=== PATIENT | male | born 1975 | race African-American/Black ===

== ENCOUNTER 2016-11-03 14:14 | Emergency (ER) | payer OTHER ==
[~2016-11-03] VITALS: Ht 185.4 cm; Wt 91.6 kg
[~2016-11-03 14:14] MED LIST: AMOXICILLIN PO; BACTRIM 400-801 EACH PO
[2016-11-03] MEDS ORDERED: TRIBENZOR 40-11 EACH PO (14:34)
[2016-11-03] MEDS ORDERED: FLONASE 0.05%50 MCG NASAL (15:49)
[2016-11-03] MEDS ORDERED: IBUPROFEN 800800 M1 PO (15:49)
[2016-11-03 16:08] VITALS: BP 117/77
== END 2016-11-03 16:09 | disposition home or self-care (01) ==
LOC: ER 14:14
DX: B34.9 Viral infection, unspecified (principal); F17.210 Nicotine dependence, cigarettes, uncomplicated; F10.99 Alcohol use, unspecified with unspecified alcohol-induced disorder

== ENCOUNTER 2017-01-18 20:11 | Emergency (ER) | payer OTHER ==
[~2017-01-18] VITALS: Ht 185.4 cm; Wt 68.0 kg
--- NOTE | ~2017-01-18 | EKG ---
[address] [address] ELECTROCARDIOGRAM REPORT Name: RAY BARBA [facility] [id number] Admission: 01/18/17 Attend Phys: Discharge: 01/18/17 Date of : 79 Report #: [id number] THIS REPORT FOR: //name// [facility] ED Test Date: 2017-01-18 Test Time: 20:16:27 Pat Name: RAY BARBA Department: Room: Gender: M Physicist [place]: REGINA : 1975 Requested By: Maged Franklin Order Number: [id number] MD: Kalyan An Measurements Intervals [place] Rate: 62 P: 30 [place]: 154 QRS: -24 QRSD: 117 T: 57 QT: 392 QTc: 398 Interpretive Statements Sinus rhythm Nonspecific intraventricular conduction delay No previous ECG available for comparison Electronically Signed On 01-19-2017 15:29:24 CDT by Kalyan An [email or web address] <ELECTRONICALLY SIGNED> By: Kalyan An MD 01/19/17 1529 15 15 Kalyan An MD /TOMMY
[~2017-01-18 20:11] MED LIST changes: +FLONASE 0.05%50 MCG NASAL; +IBUPROFEN 800800 M1 PO; +TRIBENZOR 40-11 EACH PO
[2017-01-18 20:43] LABS: ABSOLUTE NEUTROPHILS 1.5 thou/uL (1.4-8.2); EOSINOPHILS 2.4 % (0.0-3.0); HEMOGLOBIN 14.5 gm/dL (14.0-18.0); LYMPHOCYTES 49.7 % (24.0-44.0); MCH 32.1 pg (26.0-34.0); MCHC 34.4 g/dL (28.0-37.0); MCV 93.2 fL (80.0-100.0); MONOCYTES 9.1 % (1.0-8.0); PLATELET COUNT 159 thou/uL (150-400); POLYS 37.8 % (36.0-66.0); RBC 4.51 mil/uL (4.50-6.00)
[2017-01-18 20:44] LABS: MANUAL DIFF NO
[2017-01-18 20:52] LABS: ANION GAP 9 mmol/L (7-16); BUN 15 mg/dL (7-18); CHLORIDE 105 mmol/L (98-107); CO2 28 mmol/L (21-32); CREATININE 1.2 mg/dL (0.6-1.3); GLUCOSE 106 mg/dL (70-99); POTASSIUM 3.6 mmol/L (3.5-5.1); SODIUM 142 mmol/L (136-145)
[2017-01-18 21:00] LABS: TROPONIN-I < 0.04 ng/mL (<0.04-0.07)
[2017-01-18] MEDS ORDERED: ULTRAM 50MG TAB50 MG PO (21:32)
[2017-01-18 21:53] VITALS: BP 149/102
== END 2017-01-18 21:53 | disposition home or self-care (01) ==
LOC: ER 20:11
PROVIDERS: Emergency Medicine
DX: R07.1 Chest pain on breathing (principal); I10 Essential (primary) hypertension; Z88.2 Allergy status to sulfonamides; F17.210 Nicotine dependence, cigarettes, uncomplicated; F10.99 Alcohol use, unspecified with unspecified alcohol-induced disorder; Z87.728 Personal history of other specified (corrected) congenital malformations of nervous system and sense organs; Z87.09 Personal history of other diseases of the respiratory system

== ENCOUNTER 2018-07-27 18:34 | Emergency (ER) | payer BC ==
[~2018-07-27] VITALS: Ht 185.4 cm; Wt 95.3 kg
[~2018-07-27 18:34] MED LIST changes: +ULTRAM 50MG TAB50 MG PO
[2018-07-27] MEDS ORDERED: AMLODIPINE BESY10 MG PO (19:06)
[2018-07-27] MEDS ORDERED: HYDROCHLOROTH12.5 M1 PO (19:06)
[2018-07-27] MEDS ORDERED: OLMESARTAN MEDO40 MG PO (19:06)
[2018-07-27] MEDS ORDERED: CIPRO250 M1 PO (19:07)
[2018-07-27] MEDS ORDERED: FLAGYL500 MG PO (19:07)
[2018-07-27 20:20] VITALS: BP 151/117
== END 2018-07-27 20:22 | disposition home or self-care (01) ==
LOC: ER 18:34
DX: I10 Essential (primary) hypertension (principal); F17.210 Nicotine dependence, cigarettes, uncomplicated; Z71.6 Tobacco abuse counseling; Z88.2 Allergy status to sulfonamides

== ENCOUNTER 2018-08-21 17:54 | Inpatient (IN) | payer BC ==
[~2018-08-21] VITALS: Ht 185.4 cm; Wt 83.0 kg
--- NOTE | ~2018-08-21 | EKG ---
[address] [address] ELECTROCARDIOGRAM REPORT Name: RAY BARBA Room #: 454-P ADM IN M.R.#: [id number] Admission: 08/21/18 Attend Phys: Cirilo Saldaña MD Discharge: Date of : 79 Report #: [id number] THIS REPORT FOR: //name// [facility] ED Test Date: 2018-08-21 Test Time: 20:21:19 Pat Name: RAY BARBA Department: Room: [facility] Gender: M Global Project Manager: JEET : 1975 Requested By: Chela Quigley Order Number: [id number] MD: Mitchell Horvath Measurements Intervals [place] Rate: 80 P: -7 [place]: 169 QRS: -26 QRSD: 117 T: 53 QT: 361 QTc: 417 Interpretive Statements Sinus rhythm Nonspecific intraventricular conduction delay ST elev, probable normal early repol pattern Compared to ECG 01/18/2017 20:16:27 No significant change was found Electronically Signed On 08-22-2018 8:58:34 CDT by Mitchell Horvath [email or web address] <ELECTRONICALLY SIGNED> By: Mitchell Horvath MD, [facility] 08/22/18 0858 20 20 Mitchell Horvath MD, [facility] /EPI
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
--- NOTE | ~2018-08-21 | EKG ---
[address] [address] ELECTROCARDIOGRAM REPORT Name: RAY BARBA [facility] M.R.#: [id number] Admission: 08/21/18 Attend Phys: Cirilo Saldaña MD Discharge: 08/24/18 Date of : 79 Report #: [id number] THIS REPORT FOR: //name// [facility] Test Date: 2018-08-24 Test Time: 13:24:25 Pat Name: RAY BARBA Department: Room: [facility] Gender: M Practice Representative: JODEE : 1975 Requested By: Cirilo Saldaña Order Number: [id number] MD: Mitchell Horvath Measurements Intervals [place] Rate: 75 P: -17 [place]: 158 QRS: -42 QRSD: 107 T: 34 QT: 371 QTc: 415 Interpretive Statements Sinus rhythm Left axis deviation Poor R wave progression Compared to ECG 08/21/2018 20:21:19 No significant change was found Electronically Signed On 08-25-2018 8:06:29 BOX TOE STITCHER by Mitchell Horvath [email or web address] <ELECTRONICALLY SIGNED> By: Mitchell Horvath MD, [facility] 08/25/18 0806 1324 1324 Mitchell Horvath MD, [facility] /EPI
--- NOTE | ~2018-08-21 | EEG ---
[facility] [place] [address] [place] [address] ELECTROENCEPHALOGRAM Name: RAY BARBA Room #: 454-P ADM IN M.R.#: [id number] Admission: 08/21/18 Attend Phys: Cirilo Saldaña MD Discharge: Date of : 79 Report #: [id number] THIS REPORT FOR: //name// CC: JAYMIE Saldaña DATE OF SERVICE: 08/22/2018 This patient is being evaluated for the possibility of syncope. EEG was done by placing the electrode by standard 10-20 system of electrode placement. Both referential and sequential montages were used for recording. Background activity in this patient's EEG is about 11 Hz and 40 microvolt. It is a symmetrical activity. The patient goes to sleep that is associated with bilaterally symmetrical sleep spindle and vertex sharp waves. Throughout the record, no active epileptiform activity was noticed. IMPRESSION: This patient's EEG is within normal limit. Thank you very much for this referral. <ELECTRONICALLY SIGNED> By: Aneudy Akers MD 08/23/18 1712 1515 19 Aneudy Akers MD /nt
--- NOTE | ~2018-08-21 | EXE ---
[facility] [address] [place] [address] STRESS ECHOCARDIOGRAM Name: RAY BARBA Room #: 454-P [facility] IN M.R.#: [id number] Admission: 08/21/18 Attend Phys: Cirilo Saldaña MD Discharge: Date of : 79 Date of Service: 08/22/18 1443 Report #: [id number] THIS REPORT FOR: //name// APPROVED REPORT Study performed: 08/22/2018 12:15:34 Exam: Stress Echocardiogram Indication: Hypertension, Syncope Patient Location: Echo lab Stress Nurse: Angela Mullen RN Room #: 454 Status: routine Ht: 6 ft 0 in HR: 77 bpm BP: 152/110 mmHg Rhythm: NSR Medical History Medical History: Smoking, HTN Cardiac Risk Factors: HTN, Smoking Procedure The patient underwent an Exercise Stress Test using the Tito Protocol. Blood pressure, heart rate, and EKG were monitored. An Echocardiogram was performed by shift lab technician in four stages in quad fashion. At peak stress, four selected images were obtained and placed side by side with resting images for comparison. Stress Test Details Stress Test: Exercise stress testing was performed using a Tito protocol. HR Resting HR: 77 bpm Max Heart Rate (APMHR): 180 bpm Max HR Achieved: 130 bpm Target HR (85% APMHR): 153 bpm % of APMHR: 72 Recovery HR: 75 bpm HR response to stress: Normal HR response to stress BP Resting BP: 152/110 mmHg Max BP: 190/100 mmHg Recovery BP: 150/101 mmHg ECG [facility] [address] [address] STRESS ECHOCARDIOGRAM Name: RAY BARBA Room #: 454-P [facility] IN .R.#: [id number] Admission: 08/21/18 Attend Phys: Cirilo Saldaña MD Discharge: Date of : 79 Date of Service: 08/22/18 1443 Report #: [id number] Resting ECG: Sinus Rhythm Stress ECG: Sinus Tachycardia Arrhythmia: None Recovery ECG: Sinus Rhythm Clinical Reason for Termination: Maximal effort, Dyspnea Stress Symptoms: Dyspnea Exercise duration: 9 min 39 sec Highest Stage Achieved: Stage 4: 4.2 mph at 16% grade. Exercise capacity: 12.1 METs Overall Exercise Capacity for Age: Poor Stress ECG Conclusion 1. Subjectively negative for ischemia 2. Elective cartographic treatment for ischemia. 3. Satisfactory functional capacity Pre-Stress Echo The resting Echocardiogram showed normal left ventricular contractility with an estimated Ejection Fraction of about >55%. Post-Stress Echo The stress Echocardiogram showed normal left ventricular contractility with an estimated Ejection Fraction of about 65%. Normal augmentation of wall motion in all segments on post stress images. Clinical Normal augmentation of myocardial wall segments using a 17 segment model. No clinical or ECG evidence for ischemia. Conclusion Clinical Response: Non-ischemic Exercise Capacity: Below Average Stress ECG Response: Non-ischemic Stress Echo Images: Non-ischemic 1. Low risk study No prior study available for comparison. Other Information Study Quality: Good [facility] [address] [place] [address] STRESS ECHOCARDIOGRAM Name[facility] Room #: 454-P ADM IN M.R.#: [id number] Admission: 08/21/18 Attend Phys: Cirilo Saldaña MD Discharge: Date of : 79 Date of Service: 08/22/18 144 Report #: [id number] <Conclusion> 1. Low risk study <ELECTRONICALLY SIGNED> By: Daquan Amaral MD 08/22/18 1443 42 42 Daquan Amaral MD /INF
[~2018-08-21 17:54] MED LIST changes: +AMLODIPINE BESY10 MG PO; +CIPRO250 M1 PO; +FLAGYL500 MG PO; +HYDROCHLOROTH12.5 M1 PO; +OLMESARTAN MEDO40 MG PO
[2018-08-21 17:56] VITALS: BP 116/81
[2018-08-21] MEDS ORDERED: BENICAR20 MG PO (18:08)
[2018-08-21] MEDS ORDERED: CHLORTHALIDONE25 MG PO (18:09)
[2018-08-21 18:46] LABS: HEMOGLOBIN 13.3 gm/dL (14.0-18.0)
[2018-08-21 18:48] LABS: ABSOLUTE NEUTROPHILS 2.6 thou/uL (1.4-8.2); BASOPHILS 0.7 % (0.0-2.0); EOSINOPHILS 1.7 % (0.0-3.0); HEMATOCRIT 38.2 % (42.0-52.0); MCH 32.1 pg (26.0-34.0); MCHC 34.9 g/dL (28.0-37.0); MONOCYTES 7.4 % (1.0-8.0); PLATELET COUNT 173 thou/uL (150-400); POLYS 52.2 % (36.0-66.0); RBC 4.15 mil/uL (4.50-6.00); RDW 13.6 % (10.5-14.5)
[2018-08-21 18:49] LABS: CALCIUM 9.2 mg/dL (8.5-10.1); CREATININE 1.3 mg/dL (0.7-1.3)
[2018-08-21 18:54] LABS: POTASSIUM 2.8 mmol/L (3.5-5.1)
[2018-08-21 18:55] LABS: ALBUMIN 3.6 g/dL (3.4-5.0); TOTAL BILIRUBIN 0.3 mg/dL (<0.1-1.0); TOTAL PROTEIN 6.8 g/dL (6.4-8.2)
[2018-08-21 19:00] LABS: URINE BILIRUBIN NEGATIVE (Negative); URINE BLOOD 2+ (Negative); URINE CLARITY CLEAR; URINE COLOR YELLOW; URINE GLUCOSE-RANDOM* NEGATIVE (Negative); URINE KETONES TRACE (Negative); URINE LEUKOCYTES NEGATIVE (Negative); URINE NITRITE NEGATIVE (Negative); URINE PROTEIN (DIPSTICK) TRACE (Negative); URINE SPECIFIC GRAVITY 1.025 (1.005-1.035); URINE UROBILINOGEN 0.2 E.U./dl (0.2-1.0)
[2018-08-21 19:08] LABS: AMP/METHAMP Negative (Negative); BARBITURATES Negative (Negative); BENZODIAZEPINES Negative (Negative); COCAINE Negative (Negative); METHADONE Negative (Negative); OPIATES Negative (Negative); PCP Negative (Negative)
[2018-08-21 19:11] LABS: SQUAMOUS None Seen /LPF (0-3); URINE RBC 3-10 Few /HPF (0-2)
[2018-08-21 19:12] LABS: BACTERIA 1-9 Few /HPF (None Seen); CASTS None Seen /LPF (None Seen); CRYSTALS None Seen /LPF (None Seen); URINE WBC None Seen /HPF (0-5)
[2018-08-21 21:29] VITALS: BP 146/94
[2018-08-21 22:12] VITALS: BP 145/103
[2018-08-21 23:52] VITALS: BP 137/89
[2018-08-22] VITALS (9 sets, daily range): BP systolic 132–165; BP diastolic 87–118
[2018-08-22 10:59] LABS: CALCIUM 8.7 mg/dL (8.5-10.1); CREATININE 1.2 mg/dL (0.7-1.3); POTASSIUM 3.5 mmol/L (3.5-5.1)
[2018-08-23 03:39] VITALS: BP 132/87
[2018-08-23 05:43] LABS: HEMATOCRIT 39.7 % (42.0-52.0); HEMOGLOBIN 13.9 gm/dL (14.0-18.0); MCH 32.3 pg (26.0-34.0); MCHC 34.9 g/dL (28.0-37.0); MCV 92.6 fL (80.0-100.0); PLATELET COUNT 168 thou/uL (150-400); RBC 4.29 mil/uL (4.50-6.00); RDW 13.4 % (10.5-14.5); WBC 5.1 thou/uL (4.0-11.0)
[2018-08-23 06:01] LABS: ALBUMIN 3.6 g/dL (3.4-5.0); CALCIUM 8.8 mg/dL (8.5-10.1); CREATININE 1.1 mg/dL (0.7-1.3); MAGNESIUM 1.9 mg/dL (1.8-2.4); POTASSIUM 3.6 mmol/L (3.5-5.1); TOTAL BILIRUBIN 0.2 mg/dL (<0.1-1.0); TOTAL PROTEIN 6.6 g/dL (6.4-8.2)
[2018-08-23 06:25] LABS: ABSOLUTE NEUTROPHILS 2.3 thou/uL (1.4-8.2); ANISOCYTOSIS 1+; ATYPICAL LYMPHS 1 %; POLYCHROMASIA OCCASIONAL
[2018-08-23 06:26] LABS: HYPOCHROMASIA SLIGHT
[2018-08-23 15:13] VITALS: BP 150/96
[2018-08-23 15:14] VITALS: BP 149/109
[2018-08-23 15:16] VITALS: BP 155/110
[2018-08-23 19:16] VITALS: BP 161/106
[2018-08-24 03:24] VITALS: BP 150/94
[2018-08-24 06:29] LABS: HEMATOCRIT 41.6 % (42.0-52.0); HEMOGLOBIN 14.2 gm/dL (14.0-18.0); MCH 31.9 pg (26.0-34.0); MCHC 34.2 g/dL (28.0-37.0); MCV 93.3 fL (80.0-100.0); RBC 4.46 mil/uL (4.50-6.00); RDW 13.7 % (10.5-14.5); WBC 3.3 thou/uL (4.0-11.0)
[2018-08-24 06:39] LABS: CREATININE 1.2 mg/dL (0.7-1.3); MAGNESIUM 2.2 mg/dL (1.8-2.4); POTASSIUM 3.7 mmol/L (3.5-5.1)
[2018-08-24 09:30] VITALS: BP 157/90
[2018-08-24 09:40] VITALS: BP 144/105
[2018-08-24] MEDS ORDERED: K-DUR 20 MEQ T20 MEQ PO (19:11)
[2018-08-24] MEDS ORDERED: ACETAMINOPHEN325 M1 PO (19:11)
[2018-08-24] MEDS ORDERED: BENICAR20 MG PO (19:12)
[2018-08-24] MEDS ORDERED: HYDROCHLOROTHIA25 M1 PO (19:12)
[2018-08-24] MEDS ORDERED: SLOW-MAG64 M1 PO (19:19)
[2018-08-24] MEDS ORDERED: NICOTINE TRANSD14 M1 TRANSDERM (19:19)
[2018-08-24 19:40] VITALS: BP 148/99
== END 2018-08-24 20:20 | disposition home or self-care (01) | DRG 552 ==
LOC: ER 17:54 → EROBS 21:14 → 4W 21:14
PROVIDERS: Hospitalist; Nurse Practitioner Acute Care; Physician Assistant
PROC: 0HQ0XZZ Repair Scalp Skin, External Approach (ICD-10-PCS; principal; 2018-08-21)
DX: S16.1XXA Strain of muscle, fascia and tendon at neck level, initial encounter (principal); S01.01XA Laceration without foreign body of scalp, initial encounter; I10 Essential (primary) hypertension; F17.210 Nicotine dependence, cigarettes, uncomplicated; S29.012A Strain of muscle and tendon of back wall of thorax, initial encounter; E87.6 Hypokalemia; R55 Syncope and collapse; E83.42 Hypomagnesemia; T50.2X5A Adverse effect of carbonic-anhydrase inhibitors, benzothiadiazides and other diuretics, initial encounter; Z79.899 Other long term (current) drug therapy; Z88.2 Allergy status to sulfonamides; V89.2XXA Person injured in unspecified motor-vehicle accident, traffic, initial encounter; Y93.89 Activity, other specified; Y92.488 Other paved roadways as the place of occurrence of the external cause; Y99.8 Other external cause status; Z82.49 Family history of ischemic heart disease and other diseases of the circulatory system; Z82.0 Family history of epilepsy and other diseases of the nervous system; Z71.6 Tobacco abuse counseling; Z72.89 Other problems related to lifestyle
CPT/HCPCS: 10045